=== PATIENT | male | born 1990 | race Hispanic/Latino ===

== ENCOUNTER 2017-05-07 16:58 | Inpatient (IN) | payer MEDICAID, OTHER ==
[~2017-05-07] VITALS: Ht 170.2 cm; Wt 117.9 kg
[2017-05-07 18:42] LABS: BASOPHILS % (AUTO) 0.3 % (0.0-5.0); EOSINOPHILS % (AUTO) 0.1 % (0.0-8.0); HEMATOCRIT 45.4 % (42-54); LYMPHOCYTES % (AUTO) 6.5 % (21.0-51.0); MEAN CORPUSCULAR HEMOGLOBIN 28.7 pg (27.0-33.0); MEAN CORPUSCULAR HGB CONC 34.1 g/dL (32.0-36.0); MEAN CORPUSCULAR VOLUME 84.4 fL (79-99); NEUTROPHILS % (AUTO) 87.1 % (40.0-77.0); PLATELET COUNT (AUTO) 301 K/uL (130-400); RED BLOOD CELL COUNT(AUTO) 5.39 MIL/uL (4.50-6.20); RED CELL DISTRIBUTION WIDTH 13.5 % (11.0-15.5); WHITE BLOOD COUNT (AUTO) 17.3 K/uL (4.8-10.8)
[2017-05-07] MEDS ORDERED: ONDANSETRON HCL 4 MG/2 ML VIAL ONE (18:47)
[2017-05-07] MEDS ORDERED: KETOROLAC TROMETHAMINE 30MG/ML ONE (18:48)
[2017-05-07] MEDS ORDERED: DICYCLOMINE HCL 10 MG/ML 2ML AMP IM ONE (18:48)
[2017-05-07 18:51] LABS: APPEARANCE,URINE Clear (CLEAR); BILIRUBIN,URINE Negative (NEGATIVE); COLOR,URINE Dark Yellow (YELLOW); GLUCOSE, URINE (UA) Negative (NEGATIVE); KETONES,URINE 15 mg/dL (NEGATIVE); LEUKOCYTE ESTERASE ,URINE Trace (NEGATIVE); NITRATE,URINE Negative (NEGATIVE); OCCULT BLOOD,URINE Negative (NEGATIVE); PH,URINE 5.5 (5.0-8.0); PROTEIN,URINE POS 1+ (NEGATIVE)
[2017-05-07 19:09] LABS: POTASSIUM 4.1 mmol/L (3.5-5.1)
[2017-05-07 19:13] LABS: ALBUMIN 4.1 g/dL (3.5-5.0); BILIRUBIN,TOTAL 0.6 mg/dL (0.2-1.0); TOTAL PROTEIN, SERUM 7.7 g/dL (6.0-8.3)
[2017-05-07 19:20] LABS: RBC,URINE 0-1 /HPF (0-1)
[2017-05-07 19:21] LABS: BACTERIA,URINE Rare /HPF (None Seen); SQUAMOUS EPITHELIAL CELL,UR Rare /LPF (0-2)
[2017-05-07] MEDS ORDERED: MORPHINE SULFATE 4 MG/1ML SYG ONE (20:51)
[2017-05-07] MEDS ORDERED: CEFOXITIN SODIUM 2 GM VIAL ONE (21:06)
[2017-05-07 21:23] VITALS: BP 136/70
[2017-05-07] MEDS ORDERED: LACTATED RINGERS 1000ML 1,000 ML IV ONE (21:32)
[2017-05-07] MEDS ORDERED: MORPHINE SULFATE 4 MG/1ML SYG IVP PRN (21:45)
[2017-05-07] MEDS: LACTATED RINGERS 1000ML 1,000 ML IV SCH (21:45)
[2017-05-07] MEDS ORDERED: ONDANSETRON HCL 4 MG/2 ML VIAL IVP PRN (21:45)
[2017-05-07] MEDS ORDERED: MORPHINE SULFATE 2 MG/ML 1ML SYG IVP PRN (21:45)
[2017-05-08] VITALS (7 sets, daily range): BP systolic 94–123; BP diastolic 51–78
[2017-05-08] MEDS: CEFOXITIN SODIUM 1 GM VIAL IVP SCH ×4 (03:17→20:27)
[2017-05-08] MEDS: LACTATED RINGERS 1000ML 1,000 ML IV SCH ×3 (03:40→20:27)
[2017-05-08 05:12] LABS: HEMATOCRIT 40.2 % (42-54); MEAN CORPUSCULAR HGB CONC 34.3 g/dL (32.0-36.0); MEAN CORPUSCULAR VOLUME 84.4 fL (79-99); NUCLEATED RED BLOOD CELLS 0.1 % (0.0-0.19); PLATELET COUNT (AUTO) 278 K/uL (130-400); RED BLOOD CELL COUNT(AUTO) 4.76 MIL/uL (4.50-6.20); RED CELL DISTRIBUTION WIDTH 13.4 % (11.0-15.5); WHITE BLOOD COUNT (AUTO) 10.7 K/uL (4.8-10.8)
[2017-05-08 05:26] LABS: ALBUMIN 3.3 g/dL (3.5-5.0); BILIRUBIN,TOTAL 0.8 mg/dL (0.2-1.0); CREATININE 1.1 mg/dL (0.5-1.5); POTASSIUM 3.7 mmol/L (3.5-5.1); TOTAL PROTEIN, SERUM 6.9 g/dL (6.0-8.3)
[2017-05-09] VITALS (21 sets, daily range): BP systolic 103–145; BP diastolic 59–86
[2017-05-09] MEDS: LACTATED RINGERS 1000ML 1,000 ML IV SCH ×2 (04:40→08:35)
[2017-05-09] MEDS: CEFOXITIN SODIUM 1 GM VIAL IVP SCH ×4 (04:40→19:44)
[2017-05-09 05:07] LABS: BASOPHILS % (AUTO) 1.1 % (0.0-5.0); HEMATOCRIT 40.7 % (42-54); LYMPHOCYTES % (AUTO) 23.2 % (21.0-51.0); MEAN CORPUSCULAR HEMOGLOBIN 28.7 pg (27.0-33.0); MEAN CORPUSCULAR HGB CONC 33.9 g/dL (32.0-36.0); MEAN CORPUSCULAR VOLUME 84.5 fL (79-99); MONOCYTES % (AUTO) 8.2 % (3.0-13.0); NEUTROPHILS % (AUTO) 65.5 % (40.0-77.0); NUCLEATED RED BLOOD CELLS 0.1 % (0.0-0.19); PLATELET COUNT (AUTO) 268 K/uL (130-400); RED BLOOD CELL COUNT(AUTO) 4.82 MIL/uL (4.50-6.20); RED CELL DISTRIBUTION WIDTH 13.4 % (11.0-15.5); WHITE BLOOD COUNT (AUTO) 11.6 K/uL (4.8-10.8)
[2017-05-09 05:26] LABS: ALBUMIN 3.1 g/dL (3.5-5.0); BILIRUBIN,TOTAL 0.6 mg/dL (0.2-1.0); CREATININE 1.5 mg/dL (0.5-1.5); POTASSIUM 3.8 mmol/L (3.5-5.1); TOTAL PROTEIN, SERUM 6.7 g/dL (6.0-8.3)
[2017-05-09] MEDS ORDERED: DEXAMETHASONE SOD PHOSPHATE 10MG/ML 1ML VIAL ONE (08:37)
[2017-05-09] MEDS ORDERED: GLYCOPYRROLATE 0.2 MG/ML 5 ML VIAL ONE (08:37)
[2017-05-09] MEDS ORDERED: ONDANSETRON HCL 4 MG/2 ML VIAL ONE (08:37)
[2017-05-09] MEDS ORDERED: LIDOCAINE PF 2% 5ML ABBOJECT ONE (08:37)
[2017-05-09] MEDS ORDERED: SUCCINYLCHOLINE 200MG/10ML SYR ONE (08:38)
[2017-05-09] MEDS ORDERED: PROPOFOL 10 MG/ML 20ML VIAL IV ONE ×2 (08:38→09:31)
[2017-05-09] MEDS ORDERED: FENTANYL CITRATE PF 50 MCG/1 ML 2ML VIAL ONE (08:38)
[2017-05-09] MEDS ORDERED: MIDAZOLAM HCL 1 MG/ML 2ML VIAL ONE (08:38)
[2017-05-09] MEDS ORDERED: HEPARIN SODIUM 1000UNIT/ML 10ML VIAL ONE (08:50)
[2017-05-09] MEDS ORDERED: LACTATED RINGERS 1000ML 1,000 ML IV SCH (09:44)
[2017-05-09] MEDS ORDERED: ACETAMINOPHEN-CODEINE 300/30MG TAB PO PRN ×2 (09:45)
[2017-05-09] MEDS ORDERED: MEPERIDINE-PF 50 MG/ML SYG ONE (10:09)
[2017-05-10] VITALS: BP 121/75
[2017-05-10] MEDS: CEFOXITIN SODIUM 1 GM VIAL IVP SCH ×2 (03:44→08:32)
[2017-05-10 04:00] VITALS: BP 124/60
[2017-05-10 08:00] VITALS: BP 128/79
[2017-05-10 11:00] VITALS: BP 139/87
[2017-05-10] MEDS ORDERED: ACET1TAB12 PO (12:29)
== END 2017-05-10 13:21 | disposition home or self-care (01) | DRG 419 ==
LOC: EDH 16:58 → EDHIP 16:59 → 4BH 21:07
PROVIDERS: ADMIT Surgery; ATTEND Surgery
PROC: 0FT44ZZ Resection of Gallbladder, Percutaneous Endoscopic Approach (ICD-10-PCS; principal; 2017-05-09 09:30)
DX: K80.00 Calculus of gallbladder with acute cholecystitis without obstruction (principal)
CPT/HCPCS: 36415; 76705; 80053; 81001; 83690; 85025; 85027; 87804; 88304; A4218; J0330; J0500; J0694; J1100; J1644; J1885; J2001; J2175; J2250; J2270; J2405; J2704; J3010; J3490; J7030; J7120

== ENCOUNTER 2018-01-04 10:36 | Emergency (ER) | payer MEDICAID ==
[~2018-01-04 10:36] MED LIST: ACET1TAB12 PO
[2018-01-04] MEDS ORDERED: HYOSCYAMINE SULFATE 0.125 MG TAB.SUBL SL ONE (10:50)
[2018-01-04 11:19] LABS: BASOPHILS % (AUTO) 0.8 % (0.0-5.0); EOSINOPHILS % (AUTO) 0.4 % (0.0-8.0); HEMATOCRIT 46.4 % (42-54); LYMPHOCYTES % (AUTO) 12.5 % (21.0-51.0); MEAN CORPUSCULAR HEMOGLOBIN 28.4 pg (27.0-33.0); MEAN CORPUSCULAR HGB CONC 33.6 g/dL (32.0-36.0); MEAN CORPUSCULAR VOLUME 84.3 fL (79-99); MONOCYTES % (AUTO) 6.3 % (3.0-13.0); PLATELET COUNT (AUTO) 265 K/uL (130-400)
[2018-01-04 12:17] LABS: POTASSIUM 3.9 mmol/L (3.5-5.1)
[2018-01-04 12:22] LABS: BILIRUBIN,DIRECT 0.1 mg/dL (0.0-0.3); BILIRUBIN,TOTAL 0.7 mg/dL (0.2-1.0); TOTAL PROTEIN, SERUM 8.7 g/dL (6.0-8.3)
[2018-01-04 12:45] LABS: OCCULT BLOOD STOOL SINGLE ONLY POSITIVE (NEGATIVE)
[2018-01-04] MEDS ORDERED: IOHEXOL-350 75 ML VIAL IV ONE (13:27)
[2018-01-04] MEDS ORDERED: METRONIDAZOLE 500 MG TABLET ONE (14:41)
[2018-01-04] MEDS ORDERED: LEVOFLOXACIN 500 MG TABLET ONE (14:42)
== END 2018-01-04 14:54 | disposition home or self-care (01) ==
LOC: EDH 10:36
DX: K52.9 Noninfective gastroenteritis and colitis, unspecified (principal)
CPT/HCPCS: 36415; 74177; 80048; 80076; 82270; 85025; 87046; 87205; 87324; 96360; 96361; 99285; Q9967

== ENCOUNTER → 2021-04-30 | Outpatient (CLI) | payer MEDICAID ==
[~2021-04-30] MED LIST changes: -ACET1TAB12 PO; +Ergocalciferol (Vitamin D2) PO; +LEVO250S3 PO; +LEVO500T90 PO; +LIDOCAINE HCL 4% LTA SOL 4 ML VIAL TP ONE; +MAGN400T7 PO; +METR-172 PO; +TRAM50TA2 PO; +TYL3B PO; +TYL3LL PO; +ZINC220C6 PO
== END | disposition home or self-care (01) ==
LOC: WHH 13:52
PROVIDERS: ATTEND Family Medicine
DX: T81.89XA Other complications of procedures, not elsewhere classified, initial encounter (principal); S31.105A Unspecified open wound of abdominal wall, periumbilic region without penetration into peritoneal cavity, initial encounter; S31.109A Unspecified open wound of abdominal wall, unspecified quadrant without penetration into peritoneal cavity, initial encounter; L03.311 Cellulitis of abdominal wall; E11.9 Type 2 diabetes mellitus without complications; F41.9 Anxiety disorder, unspecified; E66.01 Morbid (severe) obesity due to excess calories; Z68.35 Body mass index [BMI] 35.0-35.9, adult; Z93.3 Colostomy status; Z90.49 Acquired absence of other specified parts of digestive tract; Z79.899 Other long term (current) drug therapy; Y83.8 Other surgical procedures as the cause of abnormal reaction of the patient, or of later complication, without mention of misadventure at the time of the procedure; X58.XXXA Exposure to other specified factors, initial encounter; Y93.89 Activity, other specified; Y92.238 Other place in hospital as the place of occurrence of the external cause; Y99.8 Other external cause status
CPT/HCPCS: 97606; 99215

== ENCOUNTER 2021-05-02 23:47 | Emergency (ER) | payer OTHER ==
[~2021-05-02] VITALS: Ht 172.7 cm; Wt 99.8 kg
[~2021-05-02 23:47] MED LIST changes: -Ergocalciferol (Vitamin D2) PO; -LEVO500T90 PO; -LIDOCAINE HCL 4% LTA SOL 4 ML VIAL TP ONE; -MAGN400T7 PO; -TRAM50TA2 PO; -TYL3B PO; -TYL3LL PO; -ZINC220C6 PO
[2021-05-03 01:20] VITALS: BP 120/76
[2021-05-03] MEDS ORDERED: TRAM50TA2 PO (01:21)
[2021-05-04] MEDS ORDERED: TYL3LL PO (22:25)
== END 2021-05-03 01:30 | disposition home or self-care (01) ==
LOC: EDH 23:47
DX: K57.20 Diverticulitis of large intestine with perforation and abscess without bleeding (principal)

== ENCOUNTER → 2021-05-04 | Outpatient (CLI) | payer MEDICAID ==
[~2021-05-04] MED LIST changes: +Ergocalciferol (Vitamin D2) PO; +LEVO500T90 PO; +MAGN400T7 PO; +TRAM50TA2 PO; +TYL3B PO; +TYL3LL PO; +ZINC220C6 PO
== END | disposition home or self-care (01) ==
LOC: WHH 12:05
PROVIDERS: ATTEND Family Medicine
DX: T81.89XD Other complications of procedures, not elsewhere classified, subsequent encounter (principal); S31.105D Unspecified open wound of abdominal wall, periumbilic region without penetration into peritoneal cavity, subsequent encounter; S31.109D Unspecified open wound of abdominal wall, unspecified quadrant without penetration into peritoneal cavity, subsequent encounter; L03.311 Cellulitis of abdominal wall; E11.9 Type 2 diabetes mellitus without complications; F41.9 Anxiety disorder, unspecified; E66.01 Morbid (severe) obesity due to excess calories; Z68.35 Body mass index [BMI] 35.0-35.9, adult; Z93.3 Colostomy status; Z90.49 Acquired absence of other specified parts of digestive tract; Z79.899 Other long term (current) drug therapy; Y83.8 Other surgical procedures as the cause of abnormal reaction of the patient, or of later complication, without mention of misadventure at the time of the procedure; X58.XXXD Exposure to other specified factors, subsequent encounter
CPT/HCPCS: 99211

== ENCOUNTER → 2021-05-18 | Outpatient (CLI) | payer OTHER ==
[~2021-05-18] MED LIST changes: -LEVO250S3 PO; -TRAM50TA2 PO; -TYL3LL PO
== END | disposition home or self-care (01) ==
LOC: WHH 13:24
PROVIDERS: ATTEND Family Medicine
DX: T81.89XD Other complications of procedures, not elsewhere classified, subsequent encounter (principal); S31.105D Unspecified open wound of abdominal wall, periumbilic region without penetration into peritoneal cavity, subsequent encounter; S31.109D Unspecified open wound of abdominal wall, unspecified quadrant without penetration into peritoneal cavity, subsequent encounter; E11.9 Type 2 diabetes mellitus without complications; E66.01 Morbid (severe) obesity due to excess calories; K76.0 Fatty (change of) liver, not elsewhere classified; F41.9 Anxiety disorder, unspecified; Z93.3 Colostomy status; Z90.49 Acquired absence of other specified parts of digestive tract; Z86.19 Personal history of other infectious and parasitic diseases; Z79.899 Other long term (current) drug therapy; X58.XXXD Exposure to other specified factors, subsequent encounter; Y83.8 Other surgical procedures as the cause of abnormal reaction of the patient, or of later complication, without mention of misadventure at the time of the procedure
CPT/HCPCS: 99214

== ENCOUNTER → 2021-05-25 | Outpatient (CLI) | payer OTHER ==
[~2021-05-25] MED LIST changes: +LIDOCAINE HCL 4% LTA SOL 4 ML VIAL TP ONE
== END | disposition home or self-care (01) ==
LOC: WHH 13:32
PROVIDERS: ATTEND Family Medicine
DX: T81.89XD Other complications of procedures, not elsewhere classified, subsequent encounter (principal); S31.105D Unspecified open wound of abdominal wall, periumbilic region without penetration into peritoneal cavity, subsequent encounter; S31.109D Unspecified open wound of abdominal wall, unspecified quadrant without penetration into peritoneal cavity, subsequent encounter; E11.9 Type 2 diabetes mellitus without complications; K76.0 Fatty (change of) liver, not elsewhere classified; F41.9 Anxiety disorder, unspecified; E66.01 Morbid (severe) obesity due to excess calories; Z68.35 Body mass index [BMI] 35.0-35.9, adult; Z93.3 Colostomy status; Z90.49 Acquired absence of other specified parts of digestive tract; Z86.19 Personal history of other infectious and parasitic diseases; Z79.899 Other long term (current) drug therapy; X58.XXXD Exposure to other specified factors, subsequent encounter; Y83.8 Other surgical procedures as the cause of abnormal reaction of the patient, or of later complication, without mention of misadventure at the time of the procedure
CPT/HCPCS: 11042; 11045; A4450; A6248

== ENCOUNTER → 2021-06-11 | Outpatient (CLI) | payer OTHER ==
[~2021-06-11] MED LIST changes: +BALSAM PERU/CASTOR OIL 60 GM TUBE TP ONE
== END | disposition home or self-care (01) ==
LOC: WHH 08:17
PROVIDERS: ATTEND Family Medicine
DX: T81.89XD Other complications of procedures, not elsewhere classified, subsequent encounter (principal); S31.105D Unspecified open wound of abdominal wall, periumbilic region without penetration into peritoneal cavity, subsequent encounter; S31.109D Unspecified open wound of abdominal wall, unspecified quadrant without penetration into peritoneal cavity, subsequent encounter; L89.154 Pressure ulcer of sacral region, stage 4; L89.312 Pressure ulcer of right buttock, stage 2; E11.9 Type 2 diabetes mellitus without complications; K76.0 Fatty (change of) liver, not elsewhere classified; F41.9 Anxiety disorder, unspecified; E66.01 Morbid (severe) obesity due to excess calories; Z68.35 Body mass index [BMI] 35.0-35.9, adult; Z93.3 Colostomy status; Z90.49 Acquired absence of other specified parts of digestive tract; Z86.19 Personal history of other infectious and parasitic diseases; Z79.899 Other long term (current) drug therapy; X58.XXXD Exposure to other specified factors, subsequent encounter; Y83.8 Other surgical procedures as the cause of abnormal reaction of the patient, or of later complication, without mention of misadventure at the time of the procedure
CPT/HCPCS: 11042; A6248

== ENCOUNTER → 2021-06-18 | Outpatient (CLI) | payer OTHER ==
[~2021-06-18] MED LIST changes: -BALSAM PERU/CASTOR OIL 60 GM TUBE TP ONE
== END | disposition home or self-care (01) ==
LOC: WHH 10:44
PROVIDERS: ATTEND Family Medicine
DX: T81.89XD Other complications of procedures, not elsewhere classified, subsequent encounter (principal); S31.105D Unspecified open wound of abdominal wall, periumbilic region without penetration into peritoneal cavity, subsequent encounter; S31.109D Unspecified open wound of abdominal wall, unspecified quadrant without penetration into peritoneal cavity, subsequent encounter; L89.154 Pressure ulcer of sacral region, stage 4; E11.9 Type 2 diabetes mellitus without complications; K76.0 Fatty (change of) liver, not elsewhere classified; E66.01 Morbid (severe) obesity due to excess calories; F41.9 Anxiety disorder, unspecified; Z68.35 Body mass index [BMI] 35.0-35.9, adult; Z93.3 Colostomy status; Z90.49 Acquired absence of other specified parts of digestive tract; Z86.19 Personal history of other infectious and parasitic diseases; Z79.899 Other long term (current) drug therapy; X58.XXXD Exposure to other specified factors, subsequent encounter; Y83.8 Other surgical procedures as the cause of abnormal reaction of the patient, or of later complication, without mention of misadventure at the time of the procedure
CPT/HCPCS: A6248; G0463; 99214

== ENCOUNTER → 2021-08-06 | Outpatient (CLI) | payer OTHER | END | disposition home or self-care (01) | LOC: WHH 10:57 | PROVIDERS: ATTEND Family Medicine | DX: T81.89XD Other complications of procedures, not elsewhere classified, subsequent encounter (principal); S31.105D Unspecified open wound of abdominal wall, periumbilic region without penetration into peritoneal cavity, subsequent encounter; S31.109D Unspecified open wound of abdominal wall, unspecified quadrant without penetration into peritoneal cavity, subsequent encounter; L89.154 Pressure ulcer of sacral region, stage 4; L89.312 Pressure ulcer of right buttock, stage 2; E11.9 Type 2 diabetes mellitus without complications; K76.0 Fatty (change of) liver, not elsewhere classified; F41.9 Anxiety disorder, unspecified; E66.01 Morbid (severe) obesity due to excess calories; Z68.35 Body mass index [BMI] 35.0-35.9, adult; Z93.3 Colostomy status; Z90.49 Acquired absence of other specified parts of digestive tract; Z86.19 Personal history of other infectious and parasitic diseases; Z79.899 Other long term (current) drug therapy; X58.XXXD Exposure to other specified factors, subsequent encounter; Y83.8 Other surgical procedures as the cause of abnormal reaction of the patient, or of later complication, without mention of misadventure at the time of the procedure | CPT/HCPCS: A4450; G0463 ==

== ENCOUNTER 2022-05-16 01:02 | Emergency (ER) | payer MEDICAID, OTHER ==
[~2022-05-16] VITALS: Ht 172.7 cm; Wt 128.0 kg
[~2022-05-16 01:02] MED LIST changes: +LEVO-70 PO; -LEVO500T90 PO; -LIDOCAINE HCL 4% LTA SOL 4 ML VIAL TP ONE
[2022-05-16 02:33] LABS: BASOPHILS % (AUTO) 0.9 % (0.0-5.0); EOSINOPHILS % (AUTO) 2.1 % (0.0-8.0); HEMATOCRIT 45.3 % (42-54); LYMPHOCYTES % (AUTO) 21.7 % (21.0-51.0); MEAN CORPUSCULAR HEMOGLOBIN 29.8 pg (27.0-33.0); MEAN CORPUSCULAR HGB CONC 33.3 g/dL (32.0-36.0); MEAN CORPUSCULAR VOLUME 89.3 fL (79-99); MONOCYTES % (AUTO) 8.1 % (3.0-13.0); PLATELET COUNT (AUTO) 262 K/uL (130-400); RED BLOOD CELL COUNT(AUTO) 5.07 MIL/uL (4.50-6.20); RED CELL DISTRIBUTION WIDTH 12.7 % (11.0-15.5); WHITE BLOOD COUNT (AUTO) 10.2 K/uL (4.8-10.8)
[2022-05-16 02:43] LABS: CREATININE 1.1 mg/dL (0.5-1.5); POTASSIUM 4.5 mmol/L (3.5-5.1)
[2022-05-16 02:47] LABS: INR 0.93 (0.85-1.15); PROTHROMBIN TIME 10.1 SEC (9.6-11.6)
[2022-05-16 03:27] VITALS: BP 159/89
== END 2022-05-16 03:36 | disposition home or self-care (01) ==
LOC: EDH 01:02
DX: K94.00 Colostomy complication, unspecified (principal); Z79.899 Other long term (current) drug therapy; Z90.49 Acquired absence of other specified parts of digestive tract
CPT/HCPCS: 36415; 80053; 85025; 85610

== ENCOUNTER 2022-05-31 06:31 | Day surgery (SDC) | payer MEDICAID ==
[~2022-05-31] VITALS: Ht 172.7 cm; Wt 104.3 kg
[2022-05-31] VITALS (9 sets, daily range): BP systolic 121–146; BP diastolic 59–92
[~2022-05-31 06:31] MED LIST changes: -Ergocalciferol (Vitamin D2) PO; +IRON18TA PO; -LEVO-70 PO; -MAGN400T7 PO; -METR-172 PO; +MULT-1367 PO; -TYL3B PO; -ZINC220C6 PO
[2022-05-31] MEDS ORDERED: 0.9%NACL 1000ML 1,000 ML IV ONE (07:36)
[2022-05-31] MEDS ORDERED: PROPOFOL 10 MG/ML 20ML VIAL IV ONE (08:18)
[2022-05-31] MEDS ORDERED: ONDANSETRON 4MG INJ ONE (08:20)
== END 2022-05-31 09:20 | disposition home or self-care (01) ==
LOC: ENDO 06:31 → DAH 06:31 → ENDO 09:20
PROVIDERS: ATTEND Surgery
DX: K57.00 Diverticulitis of small intestine with perforation and abscess without bleeding (principal); Z20.822 Contact with and (suspected) exposure to COVID-19; E66.01 Morbid (severe) obesity due to excess calories; Z90.49 Acquired absence of other specified parts of digestive tract; Z98.890 Other specified postprocedural states; Z68.31 Body mass index [BMI] 31.0-31.9, adult
CPT/HCPCS: 87426; 44388; J7030 ×2; J3490; J2405; A4620; A4215 ×2; A4223; A7002; A4222; A4221; A4663; A4216; A4606; 45378; J2704

== ENCOUNTER 2022-10-29 16:43 | Emergency (ER) | payer MEDICAID, OTHER ==
[~2022-10-29] VITALS: Ht 172.7 cm; Wt 117.9 kg
[2022-10-29 21:48] VITALS: BP 131/64; PULSE 78; RESP 16; O2SAT 98
[2022-10-29] MEDS ORDERED: IBUP-2070 PO (21:51)
== END 2022-10-29 21:58 | disposition home or self-care (01) ==
LOC: EDH 16:43
DX: S50.11XA Contusion of right forearm, initial encounter (principal); Z90.49 Acquired absence of other specified parts of digestive tract; X58.XXXA Exposure to other specified factors, initial encounter; Y93.89 Activity, other specified; Y92.89 Other specified places as the place of occurrence of the external cause; Y99.8 Other external cause status
CPT/HCPCS: 73090

== ENCOUNTER 2024-05-11 09:55 | Emergency (ER) | payer OTHER ==
[~2024-05-11] VITALS: Ht 172.7 cm; Wt 117.9 kg
[~2024-05-11 09:55] MED LIST changes: +IBUP-2070 PO; -IRON18TA PO; -MULT-1367 PO
--- NOTE | 2024-05-11 10:06 | ERN ---
ED Note History of Present Illness Stated Complaint: EPIGASTRIC PAIN Chief Complaint: Abdominal Pain Time Seen by MD: 09:57 Time Seen by Midlevel: 10:00 Dictation: Mr. Mercado is a history of obesity and diverticulitis with perforation (colos lucía/colostomy reversal) who presented to the emergency department this morning for evaluation of epigastric pain he reports three days of epigastric pain and diarrhea. He denies having fever, chills, shortness of breath, cough, chest pain palpitations, nausea, vomiting, hematemesis, melena, hematochezia, back pain, dysuria, headache, or dizziness Allergies: Coded Allergies: No Known Allergies (Unverified Allergy, Unknown, 05/07/17) Home Meds Active Scripts Famotidine (Pepcid) 20 Mg Tablet, 20 MG PO DAILY for 30 Days, #30 TAB 0 Refills Prov:MARYCARMEN SANCHEZ NP 05/11/24 Ondansetron (Ondansetron Odt) 4 Mg Tab.rapdis, 4 MG PO Q6HPRN PRN for nausea, #15 TAB 0 Refills Prov:MARYCARMEN SANCHEZ NP 05/11/24 Ibuprofen (Ibuprofen) 600 Mg Tablet, 600 MG PO Q8H PRN for PAIN, #15 TAB Prov:SVETLANA NO 10/29/22 Past Medical History Past Medical History: Diverticulitis Surgical History: Cholecystectomy, Other Surgical History Other: COLOSTOMY , BOWEL RESECTION, HERNIA PSYCH History: no pertinent psych hx Social History: Lives with family, Other RN Note Reviewed/Agreed w/PFSH: Yes Review of System Dictation REVIEW OF SYSTEMS: CONSTITUTIONAL: Patient denies fevers, chills, sweats and weight changes. EYES: Patient denies any visual symptoms. EARS, NOSE, AND THROAT: No difficulties with hearing. No symptoms of rhinitis or sore throat. CARDIOVASCULAR: Patient denies chest pains, palpitations, orthopnea and paroxysmal nocturnal dyspnea. RESPIRATORY: No dyspnea on exertion, no wheezing or cough. GI: No nausea, vomiting, constipation, hematemesis hematochezia or melena. Reports upper abdominal/epigastric pain x3 days. Reports diarrhea : No urinary hesitancy or dribbling. No nocturia or urinary frequency. No abnormal urethral discharge. MUSCULOSKELETAL: No myalgias or arthralgias. NEUROLOGIC: No chronic headaches, no seizures. Patient denies numbness, tingling or weakness. PSYCHIATRIC: Patient denies problems with mood disturbance. No problems with anxiety. ENDOCRINE: No excessive urination or excessive thirst. DERMATOLOGIC: Patient denies any rashes or skin changes. Initial Vital Sign VS Vital Signs Date Time Temp Pulse Resp B/P (MAP) Pulse Ox O2 Delivery O2 Flow Rate FiO2 05/11/24 09:57 97.5 94 16 143/97 96 Room Air 0 05/11/24 10:38 21 Physical Exam Dictation Vital signs: Reviewed. Afebrile. Constitutional: No acute distress. Non-toxic appearing. Head/Face: Normocephalic, atraumatic. Eyes: Periorbital areas with no swelling, redness, or edema. Lids and lashes are normal. Conjunctival injection is absent. Sclera anicteric. Pupils equal, round, reactive to light. ENT: Pinnas intact and no signs of trauma or erythema. Ear canals clear and no discharge. TMs no erythema. No nasal discharge or bleeding noted. Oropharynx with no exudate, redness, swelling, masses, exudates, or evidence of obstruction. Uvula midline. Mucous membranes moist. Neck: Trachea midline, no masses palpated, and no cervical lymphadenopathy. No swelling. Supple, full range of motion. Chest/Axilla: No tenderness, no crepitus, no paradoxical movement, no retractions. Cardiovascular: Regular rate, regular rhythm, no murmur, no gallops. Symmetric pulses. No peripheral edema. BP 143/97 Respiratory: Respirations even and unlabored. Lung sounds clear; no wheezes, rales or rhonchi. Room air spo2 99%. Gastrointestinal: Obese. No distention is appreciated. Bowel sounds are normal. No mass or organomegaly . Tenderness at epigastrium. No rebound. No rigidity. No voluntary or involuntary guarding. No Luevano's sign. Neurological: Normal speech, gross motor function intact, gross sensory function intact. No focal weakness/Paresthesia. Musculoskeletal/Extremities: All extremities have full range of motion, no pain or tenderness on palpation. Symmetric pulses. Integumentary: Intact. Skin is normal color, warm and dry. Cap refill less than 3 seconds. Results (Laboratory/Radiology) Laboratory/Radiology Laboratory Tests Test 05/11/24 10:21 05/11/24 10:26 05/11/24 10:28 Urine Color YELLOW (YELLOW) Urine Appearance CLEAR (CLEAR) Urine pH 5.5 (5.0-8.0) Urine Specific [place] 1.028 (1.001-1.031) Urine Protein 10 mg/dL (NEGATIVE) H Urine Glucose (UA) NEGATIVE mg/dL (NEGATIVE) Urine Ketones NEGATIVE mg/dL (NEGATIVE) Urine Occult Blood NEGATIVE (NEGATIVE) Urine Nitrate NEGATIVE (NEGATIVE) Urine Bilirubin NEGATIVE mg/dL (NEGATIVE) Urine Urobilinogen 0.2 mg/dL (0.2-1.0) Urine Leukocyte Esterase NEGATIVE Aidan/uL Urine RBC 0-1 /HPF (0-1) Urine WBC 2-5 /HPF (0-1) H Urine Squamous Epithelial Cells RARE /HPF (0-2) Urine Bacteria None /HPF (None Seen) Influenza Type A Antigen Negative For Type A Influenza Type B Antigen Negative For Type B White Blood Count 9.9 K/uL (4.8-10.8) Red Blood Count 5.69 MIL/uL (4.50-6.20) Hemoglobin 17.1 g/dL (14.0-18.0) Hematocrit 50.6 % (42-54) Mean Corpuscular Volume 88.9 fL (79-99) Mean Corpuscular Hemoglobin 30.1 pg (27.0-33.0) Mean Corpuscular Hemoglobin Concent 33.8 g/dL (32.0-36.0) Red Cell Distribution Width 12.9 % (11.0-15.5) Platelet Count 290 K/uL (130-400) Mean Platelet Volume 9.7 fL (7.5-10.5) Immature Granulocyte % (Auto) 0.9 % (0-1) Neutrophils (%) (Auto) 63.7 % (40.0-77.0) Lymphocytes (%) (Auto) 26.1 % (21.0-51.0) Monocytes (%) (Auto) 6.5 % (3.0-13.0) Eosinophils (%) (Auto) 2.1 % (0.0-8.0) Basophils (%) (Auto) 0.7 % (0.0-5.0) Neutrophils # (Auto) 6.3 K/uL (1.8-7.7) Lymphocytes # (Auto) 2.6 K/uL (1.0-4.8) Monocytes # (Auto) 0.6 K/uL (0.1-1.0) Eosinophils # (Auto) 0.21 K/uL (0.00-0.70) Basophils # (Auto) 0.07 K/uL (0.00-0.20) Absolute Immature Granulocyte (auto 0.09 K/uL (0-1) Nucleated Red Blood Cells 0.0 % (0.0-0.19) Sodium Level 140 mmol/L (136-145) Potassium Level 3.9 mmol/L (3.5-5.1) Chloride Level 104 mmol/L (101-111) Carbon Dioxide Level 32 mmol/L (21-32) Blood Urea Nitrogen 16 mg/dL (7-18) Creatinine 1.0 mg/dL (0.5-1.3) Glomerular Filtration Rate Calc 103 mL/min (>90) Random Glucose 115 mg/dL (70-105) H Total Calcium 9.0 mg/dL (8.5-10.1) Total Bilirubin 0.3 mg/dL (0.2-1.0) Aspartate Amino Transf (AST/SGOT) 19 U/L (10-37) Alanine Aminotransferase (ALT/SGPT) 37 U/L (12-78) Alkaline Phosphatase 76 U/L (50-136) Total Protein 8.2 g/dL (6.0-8.3) Albumin 4.1 g/dL (3.5-5.0) Lipase 26 U/L (16-77) Labs Reviewed?: Yes ED Course ED Course Orders Procedure Category Date Status Time Urinalysis Profile LAB 05/11/24 Complete 10:05 Influenza Type A & B, LAB 05/11/24 Complete Rapid 10:05 Cbc With Differential LAB 05/11/24 Complete 10:05 Comprehensive LAB 05/11/24 Complete Metabolic Panel 10:05 Lipase LAB 05/11/24 Complete 10:05 Mag/Alum/Simeth 30ml PHA 05/11/24 Complete (Maalox Plus 30ml) 11:00 Dicyclomine Hcl PHA 05/11/24 Complete (Bentyl 10mg/5ml 11:00 Lidocaine Hcl 2% PHA 05/11/24 Complete Viscous (Lidocaine Hcl 11:00 Current Medications Medications (Trade) Dose Ordered Sig/Irving Route PRN Reason Start Time Stop Time Status Last Admin Dose Admin Al Hydroxide/Mg Hydroxide (MAALox PLUS 30ML) 15 ml ONCE ONCE PO 05/11/24 11:00 05/11/24 11:01 DC Dicyclomine HCl (Bentyl 10mg/5ml Syrup) 10 mg ONCE ONCE PO 05/11/24 11:00 05/11/24 11:01 DC Lidocaine HCl (Lidocaine HCl 2% Viscous) 10 ml ONCE ONCE PO 05/11/24 11:00 05/11/24 11:01 DC Vital Signs Date Time Temp Pulse Resp B/P (MAP) Pulse Ox O2 Delivery O2 Flow Rate FiO2 05/11/24 10:38 97.5 94 16 143/97 96 Room Air* 0 21 05/11/24 09:57 97.5 94 16 143/97 96 Room Air 0 Uneventful ED course. Patient remains afebrile. He has had no further diarrhea stools. Laboratory findings as noted below. No elevation of WBCs. H&H are stable. No electrolyte derangement. Influenza A/B negative. While in the emergency department he received dose GI cocktail; endorses improvement of symptoms. He has had no further episodes of diarrhea Medical Decision Making MDM MDM: Differential diagnosis: gastroenteritis, GERD, influenza Rationale: Tests considered and ordered secondary to shared decision making include: LAB, influenza swabs, UA Previous outside records reviewed: Old ER visits. Risk of complication and/or morbidity or mortality of patient management: None Medications-Per medication reconciliation Need for hospitalization: Patient does not meet criteria for hospitalization. Need for emergency major/minor surgery: No There are no social concerns with this patient. Prescription drug management: Pepcid, Zofran Prescriptions will include symptomatic care Patient's prior external medical records from other ER visits were reviewed by me as indicated. Prior testing and results from previous visits were reviewed. Prior tests were taken into account with medical decision making and resource utilization, independent historian/historians were used to obtain complete medical history. I independently interpreted the test that were performed, results were reviewed by me and considered findings on radiology if ordered. Medical management and examination interpretation discussions were had by me with other qualified healthcare professionals as indicated for the patient's care. DX & DISP Disposition: Discharge Departure Impression: Primary Impression: Viral gastroenteritis Additional Impressions: Diarrhea, Gastritis Condition: Stable Scripts Famotidine (Pepcid) 20 Mg Tablet 20 MG PO DAILY for 30 Days, #30 TAB 0 Refills Prov: MARYCARMEN SANCHEZ NP 05/11/24 Ondansetron (Ondansetron Odt) 4 Mg Tab.rapdis 4 MG PO Q6HPRN PRN for nausea, #15 TAB 0 Refills Prov: MARYCARMEN SANCHEZ INSURANCE REPRESENTATIVE 05/11/24 Additional Instructions: Rest. Increase fluid intake. Eat bland/soft food x 24-48 hours: BRAT (bananas, rice, applesauce, toast). Avoid citrus fruits, processed foods, fatty/greasy foods, sodas, and milk . May take Zofran ODT every 6 hours as needed for nausea. Start Pepcid 20mg daily. If diet persists may take [id number] Imodium as directed. Please return to the emergency department if you experience worsening abdominal pain, bleeding, persistent diarrhea, inability to take in oral fluids, or fever. Follow up with your PCP. Referrals: NONE (PCP) Time of Disposition: 11:04 ATTESTATION BY PHYSICIAN I PERFORMED THE SUBSTANTIVE PORTION OF THE VISIT. I HAVE REVIEWED AND PERSONALLY MADE AND APPROVED THE MANAGEMENT PLAN THAT IS DOCUMENTED IN THE NOTE BY MYSELF FOR THE A PP. I ACKNOWLEDGED FOR RESPONSIBILITY FOR THE PATIENT'S MANAGEMENT PLAN. MARYCARMEN SANCHEZ NP May 11, 2024 10:06 LAMONTE SCHAEFER MD May 12, 2024 07:41
[2024-05-11 10:35] LABS: BASOPHILS # (AUTO) 0.07 K/uL (0.00-0.20); BASOPHILS % (AUTO) 0.7 % (0.0-5.0); EOSINOPHILS # (AUTO) 0.21 K/uL (0.00-0.70); EOSINOPHILS % (AUTO) 2.1 % (0.0-8.0); HEMATOCRIT 50.6 % (42-54); IMMATURE GRANULOCYTE ABSOLUTE 0.09 K/uL (0-1); LYMPHOCYTES # (AUTO) 2.6 K/uL (1.0-4.8); LYMPHOCYTES % (AUTO) 26.1 % (21.0-51.0); MEAN CORPUSCULAR HEMOGLOBIN 30.1 pg (27.0-33.0); MEAN CORPUSCULAR HGB CONC 33.8 g/dL (32.0-36.0); MEAN CORPUSCULAR VOLUME 88.9 fL (79-99); MONOCYTES # (AUTO) 0.6 K/uL (0.1-1.0); MONOCYTES % (AUTO) 6.5 % (3.0-13.0); NEUTROPHILS # (AUTO) 6.3 K/uL (1.8-7.7); NEUTROPHILS % (AUTO) 63.7 % (40.0-77.0); PLATELET COUNT (AUTO) 290 K/uL (130-400); RED BLOOD CELL COUNT(AUTO) 5.69 MIL/uL (4.50-6.20); RED CELL DISTRIBUTION WIDTH 12.9 % (11.0-15.5); WHITE BLOOD COUNT (AUTO) 9.9 K/uL (4.8-10.8)
[2024-05-11 10:38] VITALS: BP 143/97; PULSE 94; RESP 16; TEMP 97.5; O2SAT 96
[2024-05-11 10:38] LABS: APPEARANCE,URINE CLEAR (CLEAR); BILIRUBIN,URINE NEGATIVE (NEGATIVE); COLOR,URINE YELLOW (YELLOW); GLUCOSE, URINE (UA) NEGATIVE (NEGATIVE); KETONES,URINE NEGATIVE (NEGATIVE); LEUKOCYTE ESTERASE ,URINE NEGATIVE Leu/uL (NEGATIVE); NITRATE,URINE NEGATIVE (NEGATIVE); OCCULT BLOOD,URINE NEGATIVE (NEGATIVE); PH,URINE 5.5 (5.0-8.0); PROTEIN,URINE 10 mg/dL (NEGATIVE); UROBILINOGEN,URINE 0.2 mg/dL (0.2-1.0)
[2024-05-11 10:42] LABS: POTASSIUM 3.9 mmol/L (3.5-5.1)
[2024-05-11 10:44] LABS: ADD UA MICROSCOPIC YES
[2024-05-11 10:46] LABS: MUCUS,URINE RARE LPF (None Seen); RBC,URINE 0-1 /HPF (0-1); SQUAMOUS EPITHELIAL CELL,UR RARE /HPF (0-2)
[2024-05-11 10:48] LABS: ALBUMIN 4.1 g/dL (3.5-5.0); BILIRUBIN,TOTAL 0.3 mg/dL (0.2-1.0); TOTAL PROTEIN, SERUM 8.2 g/dL (6.0-8.3)
[2024-05-11 10:51] LABS: INFLUENZA TYPE A Negative For Type A (NEGATIVE); INFLUENZA TYPE B Negative For Type B (NEGATIVE)
[2024-05-11] MEDS ORDERED: ONDA-243 PO (11:12)
[2024-05-11] MEDS ORDERED: FAMO-136 PO (11:12)
[2024-05-11] MEDS: LIDOCAINE HCL 2% VISCOUS 15 ML UDCUP PO ONE (11:13)
[2024-05-11] MEDS: MAG/ALUM/SIMETH 30 ML UDCUP PO ONE (11:13)
[2024-05-11] MEDS: DICYCLOMINE HCL 10 MG/5 ML ML PO ONE (11:13)
== END 2024-05-11 11:26 | disposition home or self-care (01) ==
LOC: EDH 09:55
DX: A08.4 Viral intestinal infection, unspecified (principal); K29.70 Gastritis, unspecified, without bleeding; Z79.899 Other long term (current) drug therapy; Z90.49 Acquired absence of other specified parts of digestive tract
CPT/HCPCS: 36415; 80053; 81001; 83690; 85025; 87804; 99283

== ENCOUNTER 2024-12-05 09:18 | Emergency (ER) | payer OTHER ==
[~2024-12-05] VITALS: Ht 172.7 cm; Wt 117.9 kg
[~2024-12-05 09:18] MED LIST changes: +FAMO-136 PO; +IBUP-1492 PO; -IBUP-2070 PO; +ONDA-243 PO
--- NOTE | 2024-12-05 09:42 | ERN ---
General Chief Complaint: Multiple Complaints Stated Complaint: MULTIPLE COMPLAINTS Time Seen by MD: 09:19 History of Present Illness Initial Comments Patient is 34-year-old male who presented to ED with pain and numbness in right shoulder, both hands, right leg. He had 3 episodes of diarrhea everyday for the past 2 weeks, He is nauseous, had 1 episode of vomiting this morning. He sanjay es chest pain, shortness of breath, palpitations, fever, throat pain. His vitals shows blood pressure 159/100, pulse 82, respiratory rate 18, saturating 98% at room air. Allergies: Coded Allergies: No Known Allergies (Unverified Allergy, Unknown, 05/07/17) Home Meds Active Scripts Famotidine (Pepcid) 20 Mg Tablet, 20 MG PO DAILY for 30 Days, #30 TAB 0 Refills Prov:MARYCARMEN SANCHEZ ENERGY CONTROL OFFICER 05/11/24 Ondansetron (Ondansetron Odt) 4 Mg Tab.rapdis, 4 MG PO Q6HPRN PRN for nausea, #15 TAB 0 Refills Prov:MARYCARMEN SANCHEZ ENERGY CONTROL OFFICER 05/11/24 Ibuprofen (Ibuprofen) 600 Mg Tablet, 600 MG PO Q8H PRN for PAIN, #15 TAB Prov:SVETLANA NO SUPPLIER QUALITY ENGINEERING MANAGER 10/29/22 Past Medical History Past Medical History: No Pertinent History Past Surgical History: Other Surgical History Other: HERNIA, ABDOMINAL SX, COLOSTOMY AND COLOSTOMY REVERSAL Social History Social History: Lives with family, Other Constitutional: (+) malaise, (+) weakness; (-) chills, (-) diaphoresis, (-) fever, (-) other documentation Respiratory: (-) cough, (-) orthopnea, (-) short of breath, (-) stridor, (-) wheezing, (-) other documentation Cardiovascular: (-) chest pain, (-) edema, (-) palpitations, (-) syncope, (-) dyspnea on exertion, (-) other documentation Musculoskeletal: (+) muscle pain Review of Systems: was completed Nurses Notes Reviewed: Yes Physical Exam General Appearance: (+) no apparent distress, (+) apparent distress, (+) mild distress, (+) moderate distress, (+) severe distress, (+) thin, (+) obese, (+) combative, (+) cachetic, (+) anxious, (+) other documentation Orientation: (+) alert, (+) oriented x 3; (-) disoriented, (-) other documentation Head/Face Trauma: No Respiratory: (+) chest non-tender, (+) lungs clear; (-) decreased breath sounds, (-) retractions, (-) abnormal breath sound, (-) crackles, (-) plerual rub, (-) rales, (-) rhonchi, (-) stridor, (-) wheezing, (- ) other documentation Heart: (+) regular, (+) no gallop; (-) murmur, (-) irregular, (-) bradycardia, (-) tachycardia, (-) systolic murmur, (-) diastolic murmur, (-) extra beats, (-) friction rub, (-) gallop/S3, (-) gallop/S4, (-) other documentation Extremities: (+) normal range of motion Results Laboratory and Microbiology Lab and Micro Result Laboratory Tests Test 12/05/24 09:39 White Blood Count 9.8 K/uL (4.8-10.8) Red Blood Count 5.38 MIL/uL (4.50-6.20) Hemoglobin 16.0 g/dL (14.0-18.0) Hematocrit 46.9 % (42-54) Mean Corpuscular Volume 87.2 fL (79-99) Mean Corpuscular Hemoglobin 29.7 pg (27.0-33.0) Mean Corpuscular Hemoglobin Concent 34.1 g/dL (32.0-36.0) Red Cell Distribution Width 13.3 % (11.0-15.5) Platelet Count 280 K/uL (130-400) Mean Platelet Volume 9.9 fL (7.5-10.5) Immature Granulocyte % (Auto) 0.9 % (0-1) Neutrophils (%) (Auto) 64.6 % (40.0-77.0) Lymphocytes (%) (Auto) 26.5 % (21.0-51.0) Monocytes (%) (Auto) 5.2 % (3.0-13.0) Eosinophils (%) (Auto) 2.0 % (0.0-8.0) Basophils (%) (Auto) 0.8 % (0.0-5.0) Neutrophils # (Auto) 6.3 K/uL (1.8-7.7) Lymphocytes # (Auto) 2.6 K/uL (1.0-4.8) Monocytes # (Auto) 0.5 K/uL (0.1-1.0) Eosinophils # (Auto) 0.20 K/uL (0.00-0.70) Basophils # (Auto) 0.08 K/uL (0.00-0.20) Absolute Immature Granulocyte (auto 0.09 K/uL (0-1) Nucleated Red Blood Cells 0.0 % (0.0-0.19) Sodium Level 137 mmol/L (136-145) Potassium Level 3.8 mmol/L (3.5-5.1) Chloride Level 100 mmol/L (101-111) L Carbon Dioxide Level 32 mmol/L (21-32) Blood Urea Nitrogen 11 mg/dL (7-18) Creatinine 1.0 mg/dL (0.5-1.3) Glomerular Filtration Rate Calc 103 mL/min (>90) Random Glucose 123 mg/dL (70-105) H Total Calcium 9.2 mg/dL (8.5-10.1) Magnesium Level 2.00 mg/dL (1.80-2.40) Total Creatine Kinase 80 U/L (21-232) # Troponin I High Sensitivity 5 ng/L (4-75) EKG/XRAY/US/CT/MRI EKG Comment 1990 34 years date: 12/05/2024 time 9:30:34 Rate 70 sinus rhythm MI 167 QRSD 95 QT 375 QTcB 405 STEMI: No MDM Differential diagnosis: Dehydration/possible carpal tunnel syndrome Patient is 34-year-old male came to ED with pain and numbness in right shoulder, both hands, right leg. He says that this started very randomly at night. His vitals at presentation blood pressure 159/100, pulse 82, respiratory rate 18, saturating 98% at room air. 1000 mL NS bolus was started in ED. We did cardiac workup, ECG negative for ST-elevation FL, troponin I negative. Lab shows CBC, BMP within normal ranges. His magnesium, creatinine kinase levels are within normal range. 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 He also advised him regarding proper placement of hand during sleep. His says that she saw him gasping in middle of night few days back. We advised patient to follow up with PCP for evaluation of obstructive sleep apnea with sleep study. Follow-up with PCP in 3-5 days. ED Course Orders Procedure Category Date Status Time 12 Lead Ekg Tracing- EKG 12/05/24 Logged Technical 09:28 Troponin I High LAB 12/05/24 Complete Sensitivity 09:28 Basic Metabolic Panel LAB 12/05/24 Complete 09:28 Cbc With Differential LAB 12/05/24 Complete 09:28 Magnesium LAB 12/05/24 Complete 09:28 0.9%Nacl 1000ml (Ns PHA 12/05/24 Complete 1000ml) 09:30 Creatine Kinase, Total LAB 12/05/24 Complete 09:58 Current Medications Medications (Trade) Dose Ordered Sig/Irving Route PRN Reason Start Time Stop Time Status Last Admin Dose Admin Sodium Chloride 1,000 ml @ 0 mls/hr ONCE ONCE IV 12/05/24 09:30 12/05/24 09:33 DC 12/05/24 11:17 Vital Signs Date Time Temp Pulse Resp B/P (MAP) Pulse Ox O2 Delivery O2 Flow Rate FiO2 12/05/24 09:18 98.1 82 18 159/100 98 Room Air 0 DX & DISP Disposition: Discharge Departure Impression: Primary Impression: Dehydration Additional Impressions: Obstructive sleep apnea, Carpal tunnel syndrome Condition: Stable Additional Instructions: FOLLOW-UP WITH PRIMARY CARE PROVIDER IN 1 TO 2 DAYS. TAKE MEDICATIONS DIRECTED HERE IN THE EMERGENCY ROOM. OKAY TO CONTINUE HOME MEDICATIONS UNLESS OTHERWISE DISCUSSED DURING YOUR VISIT IN THE EMERGENCY ROOM TODAY. RETURN TO YOUR NEAREST EMERGENCY ROOM IF SYMPTOMS WORSEN OR IF THERE IS NO IMPROVEMENT. CALL 911 IF YOU NEED IMMEDIATE ASSISTANCE. TAKE TYLENOL [id number] NEEDED AND IF NO CONTRAINDICATIONS ARE PRESENT. INCREASE ORAL HYDRATION. A WOUND CULTURE OR URINE CULTURE WAS ORDERED HERE IN THE EMERGENCY ROOM DEPARTMENT PLEASE FOLLOW-UP WITH PRIMARY CARE PROVIDER AND ADVISE THEM TO GET REPORTS FROM OUR FACILITY. IF YOU HAD ANY LAUREEN WRAP/SPLINTS THAT WERE APPLIED HERE, PLEASE DO NOT REMOVE THEM UNTIL YOU SEE YOUR PRIMARY CARE OR SPECIALTY. REFERRALS: Referrals: SELF,REFERRAL (PCP) KULWANT LEONE MD Time of Disposition: 11:38 CARLYLE OMALLEY MD Dec 05, 2024 09:42 LAMONTE SCHAEFER MD Dec 05, 2024 11:38
[2024-12-05 09:46] LABS: IMMATURE GRANULOCYTE ABSOLUTE 0.09 K/uL (0-1); NUCLEATED RED BLOOD CELLS 0.0 % (0.0-0.19); PLATELET COUNT (AUTO) 280 K/uL (130-400); RED BLOOD CELL COUNT(AUTO) 5.38 MIL/uL (4.50-6.20); RED CELL DISTRIBUTION WIDTH 13.3 % (11.0-15.5); WHITE BLOOD COUNT (AUTO) 9.8 K/uL (4.8-10.8)
[2024-12-05 10:10] LABS: CREATININE 1.0 mg/dL (0.5-1.3); GLOMERULAR FILTR. RATE CALC 103.0 mL/min (>90); GLUCOSE,RANDOM 123.0 mg/dL (70-105); SODIUM SERUM 137.0 mmol/L (136-145); UREA NITROGEN, BLOOD 11.0 mg/dL (7-18)
--- NOTE | 2024-12-05 11:04 | NUR ---
assumed care at this time moved from lobby into fast track
[2024-12-05] MEDS: 0.9%NACL 1000ML 1,000 ML IV ONE (11:17)
[2024-12-05 11:53] VITALS: BP 147/89; PULSE 80; RESP 18; TEMP 98.1; O2SAT 98
--- NOTE | 2024-12-05 11:59 | EKG ---
[facility] Test Date: 2024-12-05 Test Time: 09:30:34 Pat Name: JANEL BUSTILLOS Department: ED Room: Gender: M Tool Operator: [id number] : 1990 Requested By: CARLYLE OMALLEY Order Number: [id number] Reading MD: Mahad Brizuela Measurements Intervals [place] Rate: 70 P: 36 CO: 167 QRS: 23 QRSD: 95 T: -2 QT: 375 QTc: 405 Interpretive Statements Sinus rhythm Compared to ECG 04/16/2021 10:55:59 Sinus tachycardia no longer present Short CO interval no longer present Electronically Signed On 12-05-2024 14:42:38 CDT by Mahad Brizuela Please click the below link to view image of tracing.
== END 2024-12-05 12:02 | disposition home or self-care (01) ==
LOC: EDH 09:18
DX: E86.0 Dehydration (principal); G47.33 Obstructive sleep apnea (adult) (pediatric); G56.00 Carpal tunnel syndrome, unspecified upper limb; Z93.3 Colostomy status
CPT/HCPCS: 99284; 96360; 82550; 83735; 84484; 80048; 85025; 36415; 93005; J7030

== ENCOUNTER 2025-02-18 18:40 | Emergency (ER) | payer SELFPAY ==
[~2025-02-18] VITALS: Ht 172.7 cm; Wt 117.9 kg
[2025-02-18 19:10] LABS: IMMATURE GRANULOCYTE ABSOLUTE 0.14 K/uL (0-1); NUCLEATED RED BLOOD CELLS 0.0 % (0.0-0.19); PLATELET COUNT (AUTO) 260 K/uL (130-400); RED BLOOD CELL COUNT(AUTO) 5.45 MIL/uL (4.50-6.20); RED CELL DISTRIBUTION WIDTH 12.9 % (11.0-15.5); WHITE BLOOD COUNT (AUTO) 9.7 K/uL (4.8-10.8)
[2025-02-18 19:20] LABS: CREATININE 1.1 mg/dL (0.5-1.3); GLOMERULAR FILTR. RATE CALC 91.0 mL/min (>90); GLUCOSE,RANDOM 140.0 mg/dL (70-105); SODIUM SERUM 137.0 mmol/L (136-145); UREA NITROGEN, BLOOD 12.0 mg/dL (7-18)
[2025-02-18] MEDS: 0.9%NACL 1000ML 1,000 ML IV ONE (19:20)
[2025-02-18 19:24] LABS: ASPARTATE AMINOTRANSFERASE 18.0 U/L (10-37); TOTAL PROTEIN, SERUM 7.8 g/dL (6.0-8.3)
[2025-02-18] MEDS ORDERED: IOHEXOL 350 MG/ML 100ML INFUS..BTL IV ONE (19:53)
--- NOTE | 2025-02-18 20:48 | HMCIMG ---
EXAM: CT Abdomen and Pelvis with IV contrast. CLINICAL HISTORY: Patient presents with abdominal pain in the right lower quadrant and right upper quadrant. TECHNIQUE: Axial computed tomography images of the abdomen and pelvis with intravenous contrast. COMPARISON: None provided. FINDINGS: LUNG BASES: The lung bases appear clear. No pleural effusions are seen. LIVER: Mild hepatic steatosis. Status post cholecystectomy. GALLBLADDER AND BILE DUCTS: Status post cholecystectomy. No biliary ductal dilatation is evident. PANCREAS: Unremarkable. SPLEEN: Unremarkable. ADRENAL GLANDS: Unremarkable. KIDNEYS, URETERS, AND BLADDER: The kidneys appear within normal limits. There is no hydronephrosis or hydroureter. No urinary calculi are seen. STOMACH AND BOWEL: Slightly prominent fluid-filled small bowel loop with mild circumferential wall thickening concerning for enteritis. Unremarkable appearance of the stomach and remaining bowel. No evidence of bowel obstruction. APPENDIX: The appendix appears unremarkable. No evidence of acute appendicitis on CT examination. PERITONEUM: No free fluid. No free air. LYMPH NODES: No lymphadenopathy is evident. REPRODUCTIVE: Unremarkable as visualized. VASCULATURE: No evidence of abdominal aortic aneurysm. BONES: Moderate L5/S1 disc height loss with endplate spondylosis. No aggressive appearing osseous lesion. No acute osseous pathology evident. ABDOMINAL WALL: Multiple fat-containing supraumbilical hernias. Moderate-sized umbilical hernia containing small bowel loops with a 4.7 to 5 cm defect without obstruction or strangulation. IMPRESSION: Slightly prominent fluid-filled small bowel loop with mild circumferential wall thickening concerning for enteritis. Moderate-sized umbilical hernia containing small bowel loops with a 4.7 to 5 cm defect without evidence of obstruction or strangulation. Mild hepatic steatosis. Status post cholecystectomy. Multiple fat-containing supraumbilical hernias. Moderate L5/S1 disc height loss with endplate spondylosis. /[place]
[2025-02-18 21:21] VITALS: BP 106/68; PULSE 88; RESP 20; TEMP 98.2; O2SAT 99
[2025-02-18 21:29] LABS: APPEARANCE,URINE CLEAR (CLEAR); GLUCOSE, URINE (UA) NEGATIVE (NEGATIVE); LEUKOCYTE ESTERASE ,URINE NEGATIVE Leu/uL (NEGATIVE); NITRATE,URINE NEGATIVE (NEGATIVE); OCCULT BLOOD,URINE NEGATIVE (NEGATIVE)
[2025-02-18 21:30] LABS: ADD UA MICROSCOPIC YES
[2025-02-18 21:38] LABS: SQUAMOUS EPITHELIAL CELL,UR Rare /HPF (0-2)
[2025-02-18] MEDS ORDERED: ONDA-243 PO (21:55)
[2025-02-18] MEDS ORDERED: DICY20TA2 PO (21:55)
[2025-02-18] MEDS ORDERED: FAMO-136 PO (21:55)
--- NOTE | 2025-02-18 21:56 | ERN ---
ED Note History of Present Illness Stated Complaint: ABD PAIN Chief Complaint: Abdominal Pain Time Seen by MD: 18:42 Time Seen by Midlevel: 18:42 Dictation: The patient is a 34-year-old male with a history of diverticulitis, abdominal hernia, cholecystectomy, colectomy with colostomy and reversal who presents to the emergency department with complaints of two days of upper and lower right abdominal pain associated with nausea nonbloody vomit and nonbloody diarrhea . Patient denies any fevers. Allergies: Coded Allergies: No Known Allergies (Unverified Allergy, Unknown, 05/07/17) Home Meds Active Scripts Famotidine (Pepcid) 20 Mg Tablet, 20 MG PO DAILY for 30 Days, #30 TAB 0 Refills Prov:MARYCARMEN SANCHEZ [facility] 05/11/24 Ondansetron (Ondansetron Odt) 4 Mg Tab.rapdis, 4 MG PO Q6HPRN PRN for nausea, #15 TAB 0 Refills Prov:MARYCARMEN SANCHEZ [facility] 05/11/24 Ibuprofen (Ibuprofen) 600 Mg Tablet, 600 MG PO Q8H PRN for PAIN, #15 TAB Prov:SVETLANA NO [facility] 10/29/22 Past Medical History Past Medical History: Diverticulitis Surgical History: Other Surgical History Other: HERNIA, ABDOMINAL SX, COLOSTOMY AND COLOSTOMY REVERSAL Social History: Lives with family, Other RN Note Reviewed/Agreed w/PFSH: Yes Review of System Dictation Constitutional: Negative for fever,chills, and weight loss Eyes: Negative for injury, pain,redness, and discharge ENT: Negative for injury,pain or swelling Cardiovascular: Negative for chest pain, palpitations, and edema Respiratory: Negative for shortness of breath, cough, and wheezing, Abdomen/GI: Negative for constipation positive for abdominal pain, nausea, vomiting, diarrhea Back: Negative for injury and pain : Negative for injury, bleeding and discharge MS/Extremity: Negative for injury and deformity Skin: Negative for rash, and discoloration Neuro: Negative for headache, weakness, numbness, tingling, and seizure Psych: Negative for suicide ideation, homicidal ideation, and hallucinations Initial Vital Sign VS Vital Signs Date Time Temp Pulse Resp B/P (MAP) Pulse Ox O2 Delivery O2 Flow Rate FiO2 02/18/25 18:41 97.9 110 20 157/90 98 Room Air 0 02/18/25 19:26 21 Physical Exam Dictation Vital Signs reviewed General Appearance: Alert, oriented x 3, no acute distress, well developed, nourished. Head and Face: non-traumatic. Eyes: PERRL, pink conjunctivas, eyelid no trauma, anterior chamber with arcus senilis. Ears: Pinnas intact and no signs of trauma or erythema ear canals clear and no discharge TM no erythema Nose: No discharge, no bleeding. Oropharynx: Mouth normal, tongue pink. pharynx clear,no erythema, tonsils no exudates, no abscesses noted, mucous membrane moist Neck: Supple, non-tender, no thyromegaly, no masses, no JVD, no bruits Breast:Deferred Chest:No tenderness, no crepitus, no paradoxical movement, no retractions Lungs:Clear, well-ventilated, symmetric, no rales, no wheezing, no rhonchi, no stridor, good breath sounds bilaterally Heart: Regular rate, regular rhythm, no murmur, no gallops Vascular: no peripheral edema, Abdomen: Soft, positive bowel sounds, nondistended, no guarding, Epigastric tenderness, no rebound, no masses no hepatomegaly, no splenomegaly, no Luevano's sign, no hernias. Rectal: Deferred Genital: Deferred Neurological: Normal speech, motor function intact, sensory function intact Musculoskeletal: Neck nontender, full range of motion, back nontender, full range of motion, Extremities: nontender, full range of motion Skin: Color pink, dry, no turgor, no rash, no lacerations, no abrasions, no contusions. Lymphatic: Deferred Results (Laboratory/Radiology) Laboratory/Radiology Laboratory Tests Test 02/18/25 19:04 02/18/25 21:17 White Blood Count 9.7 K/uL (4.8-10.8) Red Blood Count 5.45 MIL/uL (4.50-6.20) Hemoglobin 16.2 g/dL (14.0-18.0) Hematocrit 48.7 % (42-54) Mean Corpuscular Volume 89.4 fL (79-99) Mean Corpuscular Hemoglobin 29.7 pg (27.0-33.0) Mean Corpuscular Hemoglobin Concent 33.3 g/dL (32.0-36.0) Red Cell Distribution Width 12.9 % (11.0-15.5) Platelet Count 260 K/uL (130-400) Mean Platelet Volume 9.9 fL (7.5-10.5) Immature Granulocyte % (Auto) 1.4 % (0-1) H Neutrophils (%) (Auto) 68.4 % (40.0-77.0) Lymphocytes (%) (Auto) 21.7 % (21.0-51.0) Monocytes (%) (Auto) 6.2 % (3.0-13.0) Eosinophils (%) (Auto) 1.8 % (0.0-8.0) Basophils (%) (Auto) 0.5 % (0.0-5.0) Neutrophils # (Auto) 6.7 K/uL (1.8-7.7) Lymphocytes # (Auto) 2.1 K/uL (1.0-4.8) Monocytes # (Auto) 0.6 K/uL (0.1-1.0) Eosinophils # (Auto) 0.18 K/uL (0.00-0.70) Basophils # (Auto) 0.05 K/uL (0.00-0.20) Absolute Immature Granulocyte (auto 0.14 K/uL (0-1) Nucleated Red Blood Cells 0.0 % (0.0-0.19) Sodium Level 137 mmol/L (136-145) Potassium Level 3.7 mmol/L (3.5-5.1) Chloride Level 100 mmol/L (101-111) L Carbon Dioxide Level 32 mmol/L (21-32) Blood Urea Nitrogen 12 mg/dL (7-18) Creatinine 1.1 mg/dL (0.5-1.3) Glomerular Filtration Rate Calc 91 mL/min (>90) Random Glucose 140 mg/dL (70-105) H Total Calcium 9.1 mg/dL (8.5-10.1) Total Bilirubin 0.3 mg/dL (0.2-1.0) Direct Bilirubin 0.1 mg/dL (0.0-0.3) Aspartate Amino Transf (AST/SGOT) 18 U/L (10-37) Alanine Aminotransferase (ALT/SGPT) 27 U/L (12-78) Alkaline Phosphatase 77 U/L (50-136) Total Protein 7.8 g/dL (6.0-8.3) Albumin 3.9 g/dL (3.5-5.0) Lipase 23 U/L (16-77) Urine Color LIGHT-YELLOW (YELLOW) Urine Appearance CLEAR (CLEAR) Urine pH 6.0 (5.0-8.0) Urine Specific [place] OVER (1.001-1.031) Urine Protein 10 mg/dL (NEGATIVE) H Urine Glucose (UA) NEGATIVE mg/dL (NEGATIVE) Urine Ketones NEGATIVE mg/dL (NEGATIVE) Urine Occult Blood NEGATIVE (NEGATIVE) Urine Nitrate NEGATIVE (NEGATIVE) Urine Bilirubin NEGATIVE mg/dL (NEGATIVE) Urine Urobilinogen 0.2 mg/dL (0.2-1.0) Urine Leukocyte Esterase NEGATIVE Aidan/uL Urine RBC 0-1 /HPF (0-1) Urine WBC 0-1 /HPF (0-1) Urine Squamous Epithelial Cells Rare /HPF (0-2) Urine Bacteria Rare /HPF (None Seen) REASON: Abdominal Pain, rlq, ruq ORDERING PHYSICIAN: GENEVA PITTMAN PROCEDURE: ABD PEL W - CT ABDOMEN/PELVIS W/CONTRAST EXAM: CT Abdomen and Pelvis with IV contrast. CLINICAL HISTORY: Patient presents with abdominal pain in the right lower quadrant and right upper quadrant. TECHNIQUE: Axial computed tomography images of the abdomen and pelvis with intravenous contrast. COMPARISON: None provided. FINDINGS: LUNG BASES: The lung bases appear clear. No pleural effusions are seen. LIVER: Mild hepatic steatosis. Status post cholecystectomy. GALLBLADDER AND BILE DUCTS: Status post cholecystectomy. No biliary ductal dilatation is evident. PANCREAS: Unremarkable. SPLEEN: Unremarkable. ADRENAL GLANDS: Unremarkable. KIDNEYS, URETERS, AND BLADDER: The kidneys appear within normal limits. There is no hydronephrosis or hydroureter. No urinary calculi are seen. STOMACH AND BOWEL: Slightly prominent fluid-filled small bowel loop with mild circumferential wall thickening concerning for enteritis. Unremarkable appearance of the stomach and remaining bowel. No evidence of bowel obstruction. APPENDIX: The appendix appears unremarkable. No evidence of acute appendicitis on CT examination. PERITONEUM: No free fluid. No free air. LYMPH NODES: No lymphadenopathy is evident. REPRODUCTIVE: Unremarkable as visualized. VASCULATURE: No evidence of abdominal aortic aneurysm. BONES: Moderate L5/S1 disc height loss with endplate spondylosis. No aggressive appearing osseous lesion. No acute osseous pathology evident. ABDOMINAL WALL: Multiple fat-containing supraumbilical hernias. Moderate-sized umbilical hernia containing small bowel loops with a 4.7 to 5 cm defect without obstruction or strangulation. IMPRESSION: Slightly prominent fluid-filled small bowel loop with mild circumferential wall thickening concerning for enteritis. Moderate-sized umbilical hernia containing small bowel loops with a 4.7 to 5 cm defect without evidence of obstruction or strangulation. Mild hepatic steatosis. Status post cholecystectomy. Multiple fat-containing supraumbilical hernias. Moderate L5/S1 disc height loss with endplate spondylosis. /[facility] Labs Reviewed?: Yes ED Course ED Course Orders Procedure Category Date Status Time Cbc With Differential LAB 02/18/25 Complete 18:52 Urinalysis Profile LAB 02/18/25 Complete 18:52 0.9%Nacl 1000ml (Ns PHA 02/18/25 Complete 1000ml) 19:00 Morphine 4mg Syg PHA 02/18/25 Complete (Morphine 4mg Syg) 19:00 Ondansetron 4mg Inj PHA 02/18/25 Complete (Zofran 4mg Inj) 19:00 Pantoprazole 40mg Inj PHA 02/18/25 Complete (Protonix 40mg Inj 19:00 Lipase LAB 02/18/25 Complete 18:52 Basic Metabolic Panel LAB 02/18/25 Complete 18:52 Hepatic Function Panel LAB 02/18/25 Complete 18:52 Ct Abdomen/Pelvis CT 02/18/25 Resulted W/Contrast 19:33 Iohexol (Omnipaque) PHA 02/18/25 Complete 19:53 Current Medications Medications (Trade) Dose Ordered Sig/Irving Route PRN Reason Start Time Stop Time Status Last Admin Dose Admin Iohexol (Omnipaque) 35,000 mg STK-MED ONCE IV 02/18/25 19:53 02/18/25 19:54 DC Morphine Sulfate (morPHINE 4MG SYG) 4 mg ONCE ONCE IVP 02/18/25 19:00 02/18/25 19:01 DC 02/18/25 19:20 Ondansetron HCl (zoFRAN 4MG INJ) 4 mg ONCE ONCE IVP 02/18/25 19:00 02/18/25 19:01 DC 02/18/25 19:20 Pantoprazole Sodium (PROTonix 40MG INJ) 40 mg ONCE ONCE IVP 02/18/25 19:00 02/18/25 19:01 DC 02/18/25 19:20 Sodium Chloride 1,000 ml @ 0 mls/hr ONCE ONCE IV 02/18/25 19:00 02/18/25 19:01 DC 02/18/25 19:20 Vital Signs Date Time Temp Pulse Resp B/P (MAP) Pulse Ox O2 Delivery O2 Flow Rate FiO2 02/18/25 21:21 98.2 88 20 106/68 99 Room Air* 0 21 02/18/25 19:26 100 19 125/70 98 Room Air* 0 21 02/18/25 18:41 97.9 110 20 157/90 98 Room Air 0 Medical Decision Making MDM The patient is a 34-year-old male with a history of diverticulitis, abdominal hernia, cholecystectomy, colectomy with colostomy and reversal who presents to the emergency department with complaints of two days of upper and lower right abdominal pain associated with nausea nonbloody vomit and nonbloody diarrhea . Patient denies any fevers. CBC showed no leukocytosis, no anemia, chemistry showed mild hypochloremia, normal renal function, urinalysis unremarkable. CT abdomen and pelvis showed enteritis, multiple abdominal hernias with no obstructions. Patient received IV fluids and pain medications. Reports improving in pain. On physical exam patient is in no acute distress, nontoxic appearance patient will be discharged to follow up with his PCP. Differential diagnosis: Appendicitis, gastroenteritis, pancreatitis, gastritis, electrolyte imbalance Need for hospitalization: Patient does not meet criteria for hospitalization. There are no social concerns with this patient. DX & DISP Disposition: Discharge Departure Impression: Primary Impression: Viral gastroenteritis Additional Impressions: Umbilical hernia, Abdominal pain Condition: Stable Scripts Dicyclomine HCl (Bentyl) 20 Mg Tab 1 TAB PO TID for irritable bowel symptoms for 10 Days, #30 TAB 0 Refills Prov: GENEVA PITTMAN 02/18/25 Famotidine (Pepcid) 20 Mg Tablet 1 TAB PO BID for 30 Days, #60 TAB 0 Refills Prov: GENEVA PITTMAN 02/18/25 Ondansetron (Ondansetron Odt) 4 Mg Tab.rapdis 4 MG PO Q6HPRN PRN for nausea, #16 TAB 0 Refills Prov: GENEVA PITTMAN 02/18/25 Additional Instructions: Your labs were unremarkable. CT showed an umbilical hernia but obstruction. Please start start a bland diet. Please follow up with your primary doctor in 1-2 days. Follow up with the your surgeon. If anything worsens please return to ER. FOLLOW-UP WITH PRIMARY CARE PROVIDER IN 1 TO 2 DAYS. TAKE MEDICATIONS DIRECTED HERE IN THE EMERGENCY ROOM. OKAY TO CONTINUE HOME MEDICATIONS UNLESS OTHERWISE DISCUSSED DURING YOUR VISIT IN THE EMERGENCY ROOM TODAY. RETURN TO YOUR NEAREST EMERGENCY ROOM IF SYMPTOMS WORSEN OR IF THERE IS NO IMPROVEMENT. CALL 911 IF YOU NEED IMMEDIATE ASSISTANCE. TAKE TYLENOL [id number] NEEDED AND IF NO CONTRAINDICATIONS ARE PRESENT. INCREASE ORAL HYDRATION. A WOUND CULTURE OR URINE CULTURE WAS ORDERED HERE IN THE EMERGENCY ROOM DEPARTMENT PLEASE FOLLOW-UP WITH PRIMARY CARE PROVIDER AND ADVISE THEM TO GET REPEAT PORTS FROM OUR FACILITY. IF YOU HAD ANY LAUREEN WRAP/SPLINTS THAT WERE APPLIED HERE, PLEASE DO NOT REMOVE THEM UNTIL YOU SEE YOUR PRIMARY CARE OR SPECIALTY. Referrals: SELF,REFERRAL (PCP) Time of Disposition: 21:53 I have reviewed the case, and I agree with, Diagnosis and Plan GENEVA PITTMAN Feb 18, 2025 21:55
== END 2025-02-18 22:02 | disposition home or self-care (01) ==
LOC: EDH 18:40
DX: A08.4 Viral intestinal infection, unspecified (principal); K42.9 Umbilical hernia without obstruction or gangrene; Z79.899 Other long term (current) drug therapy; Z90.49 Acquired absence of other specified parts of digestive tract; Z93.3 Colostomy status
CPT/HCPCS: 99285; 74177; 96374; 96375; 80076; 80048; 83690; 85025; 81001; 36415; J7030; J2405; J2270; J2470; Q9967